=== PATIENT | male | born 1930 | race Caucasian/White ===

== ENCOUNTER 2016-06-19 11:28 | Emergency (ER) | payer OTHER, BC ==
[2016-06-19 11:36] VITALS: BP 128/81; PULSE 72; TEMP 98; BMI 28.4
[2016-06-19] MEDS ORDERED: ACETAMINOPHEN WITH CODEINE 300MG/30MG TABLET PO ONE (11:52)
[2016-06-19] MEDS ORDERED: ACETAMINOPHEN 325 MG TABLET (FP) PO ONE (11:53)
--- NOTE | 2016-06-19 12:03 | PDOC ---
History of Present Illness - General Chief Complaint: Pain, Acute Stated Complaint: FALL Time Seen by Provider: 06/19/16 11:29 History Source: Patient Exam Limitations: No Limitations - History of Present Illness Initial Comments: 06/19/16 11:52 This is an 86-year-old male with history of hypertension, hyperlipidemia who presents emergency primary for evaluation of right-sided chest pain. Patient states he was in his usual state of health, was in the [facility]. He stood up got dizzy and fell onto the railing He denies preceding chest pain, palpitations, shortness of breath He struck the anterior chest wall and his head No LOC No amnesia Pt initially fell back into the [facility] but got up and was able to drive home He felt well until today He notes severe pain when he moves his chest wall - sneezes, coughs, laughs. He rates that pain 10/10, no radiation. His pain limits his right shoulder/arm movement, due to pain 06/19/16 11:54 PMH: HTN, HLD PSH: ascending aortic aneurysm repair 11 years ago, Lasix surgery x 2, Left inguinal hernia repair, Prostate seeds Meds: Simvastatin, Lisinopril, Atenolol, Allopurinol ALL: PCN --> ???, IV contrast Social: denies drug or cigarette use, a retired principle GENERAL/CONSTITUTIONAL: No: fever, chills, weakness, loss of appetite. HEAD, EYES, EARS, NOSE AND THROAT: No: change in vision, ear pain, discharge, sore throat, throat swelling. CARDIOVASCULAR: Yes: right anterior chest wall pain No: lightheadedness, palpitations, syncope RESPIRATORY: No: cough, shortness of breath, wheezing, hemoptysis, stridor. GASTROINTESTINAL: No: nausea, vomiting, diarrhea, abdominal cramping, rectal bleeding, constipation. GENITOURINARY: No: dysuria, hematuria, frequency, urgency, flank pain. MUSCULOSKELETAL: No: back pain, neck pain, joint pain, muscle swelling or pain SKIN: Yes: bruising to anterior chest wall NEUROLOGIC: No: headache, vertigo, paresthesias, weakness ENDOCRINE: No: unexplained weight gain or loss HEMATOLOGIC/LYMPHATIC: No: anemia, easy bleeding, swelling nodes. GENERAL: The patient is in no acute distress. HEAD: Normal with no signs of trauma. EYES: PERRLA, EOMI, sclera anicteric, conjunctiva clear. ENT: Ears normal, nares patent, oropharynx clear without exudates. Moist mucous membranes. NECK: Normal range of motion, supple without lymphadenopathy, JVD, or masses. LUNGS: Breath sounds equal, clear to auscultation bilaterally. No wheezes, and no crackles. HEART:Regular rate and rhythm, normal S1 and S2 without murmur, rub or gallop. ABDOMEN: Soft, nontender, normoactive bowel sounds. No guarding, no rebound. EXTREMITIES: Normal range of motion, no edema. No clubbing or cyanosis. No erythema, or tenderness. NEUROLOGICAL: Cranial nerves II through XII grossly intact. Normal speech. No focal neurological deficits. MUSCULOSKELETAL: Back non-tender to palpation, no CVA tenderness SKIN: Yes: right chest wall bruising measureing approximately 12 cm x 8 cm 06/19/16 12:07 Past History - Past Medical History Allergies/Adverse Reactions: Allergies Allergy/AdvReac Type Severity Reaction Status Date / Time Penicillins Allergy Verified 06/19/16 11:28 IV CONTRAST AdvReac Mild Rash Uncoded 06/19/16 11:28 Home Medications: Ambulatory Orders Allopurinol [Zyloprim] 200 mg PO HS 08/12/12 Atenolol/Chlorthalidone [Tenoretic 100/25 Tablet] 1 each PO DAILY 08/12/12 Lisinopril [Prinivil] 20 mg PO DAILY 08/12/12 Simvastatin [Zocor] 20 mg PO HS 08/12/12 Aspirin [ASA -] 81 mg PO DAILY 06/19/16 Cardiac Disorders: Yes (AAA) HTN: Yes Hypercholesterolemia: Yes - Surgical History Abdominal Surgery: Yes (l inguinal hernia) Cardiac Surgery: (aaa,) - Psycho/Social/Smoking Cessation Hx Anxiety: No Suicidal Ideation: No Smoking Status: Yes Smoking History: Never smoked Have you smoked in the past 12 months: No Number of Cigarettes Smoked Daily: 0 Information on smoking cessation initiated: No Hx Alcohol Use: No Drug/Substance Use Hx: No Substance Use Type: None *Physical Exam - Vital Signs Last Vital Signs Temp Pulse Resp BP Pulse Ox 98 F 72 18 128/81 100 06/19/16 11:28 06/19/16 11:28 06/19/16 11:28 06/19/16 11:28 06/19/16 11:28 Medical Decision Making - Medical Decision Making 06/19/16 12:03 Chest wall trauma Likely rib fracture vs. rib contusion Pt has right facial bruising Unlikely fractured but will eval with CT Unlikely ICH Given age and evidence of trauma, will image Anticipate d/c 06/19/16 12:26 Xrays demonstrate no obvious fracture No pneumothorax, no hemothroax Head CT: no ICH No facial bone fractures *DC/Admit/Observation/Transfer Diagnosis at time of Disposition: Contusion, multiple sites - Discharge Dispostion Disposition: HOME Condition at time of disposition: Stable Admit: No - Referrals Referrals: Ryan Latham MD [Staff Physician] - - Patient Instructions Printed Discharge Instructions: DI for Rib Contusion, DI for Rib Fracture, DI for Musculoskeletal Pain Additional Instructions: Cristhian Thank you for coming in to the ER today I am sorry that you sustained your injuries on Wednesday You can take tylenol for pain Please also use the incentive spirometer to prevent future pneumonia Please return to the ER for any other concerns or complaints
== END 2016-06-19 13:03 | disposition home or self-care (01) ==
LOC: FER 11:28
DX: T14.8 Other injury of unspecified body region (principal); W16.012A Fall into swimming pool striking water surface causing other injury, initial encounter; Y93.89 Activity, other specified; Y92.9 Unspecified place or not applicable; I10 Essential (primary) hypertension; I71.4 Abdominal aortic aneurysm, without rupture; E78.00 Pure hypercholesterolemia, unspecified
CPT/HCPCS: 70450-TC; 70486-TC; 71020-TC; 71101-TC-RT; 99282-25